=== PATIENT | female | born 1960 | race American Indian/Alaskan Native ===

== ENCOUNTER 2016-09-16 08:37 | Day surgery (SDC) | payer OTHER ==
[2016-09-16] MEDS ORDERED: HALFPRIN EC PO ONE (09:55)
[2016-09-16] MEDS ORDERED: BABY ASPIRIN PO SCH (10:00)
[2016-09-16] MEDS ORDERED: NACL 0.9% 500 ML 500 ML IV SCH (10:00)
[2016-09-16 11:11] LABS: Basophils % (Auto) 0.4 % (0.0-1.8); Eosinophils % (Auto) 1.1 % (0.0-4.3); Hematocrit 37.8 % (30.3-42.9); Hemoglobin 12.8 gm/dl (10.1-14.3); Mean Corpuscular HGB Conc 34 % (30-34); Mean Corpuscular Hemoglobin 28 pg (28-32); Mean Corpuscular Volume 83 fl (79-97); Platelet Count 204 K/mm3 (140-440); Red Blood Count 4.55 M/mm3 (3.65-5.03); White Blood Count 8.5 K/mm3 (4.5-11.0)
[2016-09-16 11:29] LABS: Anion Gap 15 mmol/L; Blood Urea Nitrogen 10 mg/dL (7-17); Calcium 9.1 mg/dL (8.4-10.2); Carbon Dioxide 29 mmol/L (22-30); Chloride 104.3 mmol/L (98-107); Glucose 123 mg/dL (65-100); Potassium 3.4 mmol/L (3.6-5.0); Sodium 145 mmol/L (137-145)
[2016-09-16 11:33] LABS: INR 1.02 (0.87-1.13)
[2016-09-16] MEDS ORDERED: XYLOCAINE 1% 20 mL ONE (12:29)
[2016-09-16] MEDS ORDERED: VERSED ONE (12:29)
[2016-09-16] MEDS ORDERED: SUBLIMAZE ONE (12:29)
[2016-09-16] MEDS ORDERED: HEPARIN/NS 5000 UNIT/500ML(CATH LAB) 1,000 ML IR ONE (12:29)
--- NOTE | 2016-09-16 13:31 | Short Stay Summary ---
Short Stay Documentation Date of service: 09/16/16 - History H&P: obtained from office - Allergies and Medications Current Medications: Allergies metoclopramide HCl [From Reglan] Allergy (Unverified 09/16/16 08:38) HALLUCINATIONS Home Medications Medication Instructions Recorded Confirmed Last Taken Type Amlodipine Besylate/Benazepril 1 cap PO DAILY 12/10/12 09/16/16 09/16/16 05:00 History [amLODIPine-Benazepril 10/40 mg] Metoprolol [Lopressor TAB] 100 mg PO DAILY 12/10/12 09/16/16 09/16/16 06:30 History Rosuvastatin Calcium [Crestor] 10 mg PO QHS 12/10/12 09/16/16 09/15/16 History Aspirin EC [Aspirin Enteric Coated 325 mg PO QDAY #30 tablet 10/12/13 09/16/16 09/16/16 05:00 Rx TAB] Furosemide [Furosemide] 20 mg PO DAILY 09/16/16 09/16/16 09/15/16 History Furosemide [Lasix] 20 mg PO QDAY 09/16/16 09/16/16 09/15/16 History Insulin Degludec [Tresiba 40 units SQ QHS 09/16/16 09/16/16 09/15/16 History Flextouch U-100] Insulin Lispro [Humalog 100 20 units SQ QAM 09/16/16 09/16/16 09/16/16 06:30 History UNITS/ML Kwikpen] 8 units SQ Levocetirizine Dihydrochloride 5 mg PO QHS 09/16/16 09/16/16 09/15/16 History [Xyzal] Ondansetron [Zofran TAB] 4 mg PO DAILY 09/16/16 09/16/16 09/15/16 History Pantoprazole [Protonix] 40 mg PO QDAY 09/16/16 09/16/16 09/16/16 05:00 History Pregabalin [Lyrica] 150 mg PO DAILY 09/16/16 09/16/16 09/15/16 History Ticagrelor [Brilinta] 90 mg PO BID 09/16/16 09/16/16 09/16/16 05:00 History traMADol [Ultram] 50 mg PO Q6HR PRN 09/16/16 09/16/16 09/16/16 05:00 History Active Medications Sodium Chloride (Nacl 0.9% 500 Ml) 500 mls @ 50 mls/hr IV DIRECT JIM Stop: 09/16/16 19:59 - Physical exam General appearance: no acute distress Integumentary: no rash HEENT: Atraumatic Lungs: Clear to auscultation Breasts: deferred Heart: Regular rate Gastrointestinal: normal Female Genitourinary: deferred Rectal Exam: deferred Extremities: no ischemia Neurological: Normal gait - Brief post op/procedure progress note Date of procedure: 09/16/16 Pre-op diagnosis: Chest Pain Post-op diagnosis: same Procedure: LHC , LV gram Anesthesia: MAC Findings: see report Surgeon: BIBI LOW Estimated blood loss: none Pathology: none Condition: stable - Hospital course Hospital course: uneventful - Disposition Condition at discharge: Good Disposition: [id number] TO HOME OR SELFCARE Short Stay Discharge Plan Activity: advance as tolerated Weight Bearing Status: Non-Weight Bearing (for 2 days) Diet: low fat, low cholesterol, low salt Follow up with: NIKKI TAPIA MD [Primary Care Provider] - 7 Days
[2016-09-16 15:10] VITALS: BP 150/80
--- NOTE | 2016-09-17 02:25 | Cardiac Catherization Report ---
LEFT HEART CATHETERIZATION ORDERING PHYSICIAN: Poonam Mosquera M.D. INDICATION: Chest pain, history of percutaneous coronary intervention to LAD. PROCEDURES PERFORMED: 1. Selective left and right coronary angiography. 2. Left ventriculography. DESCRIPTION OF PROCEDURE: After obtaining written consent, the patient was draped using sterile technique. 1. A 2% lidocaine was injected into the right groin. 2. A 6-Honduran vascular sheath was inserted into the right common femoral artery using micropuncture technique. 3. A 6-Honduran JL4 catheter was used to selectively engage the left coronary artery. 4. A 6-Honduran JR4 catheter was used to selectively engage the right coronary artery. 5. A 6-Honduran JR4 catheter was used to hand inject the left ventriculogram. No complications occurred during the procedure. Hemostasis was achieved at the end of the procedure using a 6-Honduran Angio-Seal device. Estimated blood loss was minimal. SPECIMEN REMOVED: None. FINDINGS: HEMODYNAMICS: Aortic pressure is 163/82, LV systolic pressure was 163 mmHg and LV end diastolic pressure of 31 mmHg. There is no significant gradient noted across the left ventricular outflow tract. CARDIAC STRUCTURES: The left ventricle is mildly dilated. There is evidence of akinesis of the apical and mid anterior wall, apical and mid inferior wall and apical wall. Left ventricular ejection fraction is measured and estimated at 25%. CORONARY ANATOMY: 1. This is a right dominant circulation. 2. Left main is angiographically normal. 3. The left anterior descending artery has evidence of a tubular plaque noted in the mid segment with 50% luminal compromise. Distal to this plaque, there was evidence of a patent long stent with approximately 30% in-stent restenosis. The first and second diagonal artery is small in caliber measuring 1.1 mm in diameter and moderately diffusely diseased. The distal LAD tapers down to a 2 mm vessel. 4. The left circumflex artery has no evidence of obstructive lesions. There is however evidence of a scattered 30% ____ noted in the mid and proximal circumflex artery. 5. The right coronary artery is dominant. There is evidence of diffuse luminal irregularities. The PLV and PDA are the small in caliber, measuring between 1 to 2 mm in diameter. IMPRESSION: 1. Nonobstructive coronary artery disease with a 50% mid LAD followed by 30% in-stent restenosis of the mid LAD stent. Otherwise, no flow limiting lesions. 2. Dilated left ventricle with akinesis of the apex, apical and mid anterior as well as apical and mid inferior pearl. Left ventricular ejection fraction measured is estimated at 25%. 3. Elevated LV ____ measured at 31 mmHg. RECOMMENDATIONS: The patient will be recommended for optimization of her medical therapy. An echocardiogram will be obtained as an outpatient to measure a left ventricular ejection fraction. If left ventricular ejection fraction is less than or equal to 35%, the patient will be recommended for an implantable cardioverter defibrillator. JOB# [id number] GROVER/SHAHNAZ
== END 2016-09-16 15:30 | disposition home or self-care (01) ==
LOC: CATHLABREC 08:37
PROVIDERS: ATTEND Internal Medicine
DX: I25.10 Atherosclerotic heart disease of native coronary artery without angina pectoris (principal); M19.90 Unspecified osteoarthritis, unspecified site; E11.9 Type 2 diabetes mellitus without complications; E78.5 Hyperlipidemia, unspecified; I11.0 Hypertensive heart disease with heart failure; I50.40 Unspecified combined systolic (congestive) and diastolic (congestive) heart failure; F17.210 Nicotine dependence, cigarettes, uncomplicated; Z86.19 Personal history of other infectious and parasitic diseases; Z88.8 Allergy status to other drugs, medicaments and biological substances; Z79.899 Other long term (current) drug therapy; Z79.4 Long term (current) use of insulin; Z79.82 Long term (current) use of aspirin; Z98.890 Other specified postprocedural states
CPT/HCPCS: 36415; 80048; 85025; 85610; 85730; 93458; C1760; C1894; J1644; J2250; J3010; J7040; Q9967